=== PATIENT | female | born 1980 | race Caucasian/White ===

== ENCOUNTER 2021-04-20 20:03 | Emergency (ER) | payer OTHER ==
[~2021-04-20] VITALS: Ht 154.9 cm; Wt 68.0 kg
[2021-04-20] MEDS ORDERED: AMITRIPTYLINE H25 M4 PO (20:29)
[2021-04-20] MEDS ORDERED: BUTALB-ACETAMI1 EAC2 PO (20:30)
[2021-04-20] MEDS ORDERED: DULCOLAX STOOL100 M1 PO (20:30)
[2021-04-20] MEDS ORDERED: MIRALAX119 GM PO (20:31)
[2021-04-20 22:52] LABS: HEMATOCRIT 34.3 % (37.0-47.0); MCH 24.2 pg (26.0-34.0); MCHC 32.1 g/dL (28.0-37.0); MCV 75.3 fL (80.0-100.0); MPV 7.7 fl. (7.2-11.1); NUCLEATED RBCS 0 /100WBC; PLATELET COUNT* 274 thou/uL (150-400); RBC 4.56 mil/uL (4.20-5.00); RDW-CV 16.9 % (10.5-14.5); WBC 14.3 thou/uL (4.0-11.0)
[2021-04-20 22:57] LABS: CALCIUM 8.5 mg/dL (8.5-10.1); POTASSIUM 3.4 mmol/L (3.5-5.1)
[2021-04-20 23:02] LABS: ALBUMIN 3.7 g/dL (3.4-5.0); TOTAL BILIRUBIN 0.4 mg/dL (<0.1-1.0); TOTAL PROTEIN 8.2 g/dL (6.4-8.2)
[2021-04-21 00:01] LABS: ABSOLUTE MONOCYTES 0.1 thou/uL (0.0-1.2); ABSOLUTE NEUTROPHILS 13.2 thou/uL (1.6-8.1); CLUMPED PLTS OCCASIONAL; PLATELET ESTIMATE ADEQUATE; TOXIC GRANULATION 1+
[2021-04-21 00:02] LABS: ANISOCYTOSIS 1+; HYPOCHROMASIA 1+; POIKILOCYTOSIS 1+
[2021-04-21] MEDS ORDERED: TORADOL 10 MG T10 MG PO ×2 (01:27→01:43)
[2021-04-21] MEDS ORDERED: HYDROCODON-ACE1 EAC7 PO ×2 (01:27→01:43)
[2021-04-21 02:00] VITALS: BP 112/66
== END 2021-04-21 02:00 | disposition home or self-care (01) ==
LOC: M.ERS 20:03
PROVIDERS: Personal Emergency Response Attendant
DX: M75.22 Bicipital tendinitis, left shoulder (principal); M75.21 Bicipital tendinitis, right shoulder; Z20.822 Contact with and (suspected) exposure to COVID-19